=== PATIENT | male | born 1980 | race Caucasian/White ===

== ENCOUNTER 2020-12-29 16:00 | Observation (INO) | payer OTHER ==
[~2020-12-29] VITALS: Ht 167.6 cm; Wt 75.0 kg
[2020-12-29] MEDS ORDERED: IV NORMAL SALINE 1000ML BAG 1,000 ML IV ONE (16:30)
[2020-12-29] MEDS ORDERED: ONDANSETRON PF 4 MG/2 ML VIAL. IVP ONE (16:30)
[2020-12-29 16:44] LABS: BASO # 0.1 x10^3/uL (0.0-0.2); BASO % 1 % (0-3); EOS % 0 % (0-3); HEMATOCRIT 48.9 % (39.0-53.0); HEMOGLOBIN 16.7 g/dL (13.0-17.5); LYMPH # 2.2 x10^3/uL (1.0-4.8); LYMPH % 18 % (24-48); MEAN CORPUSCULAR HEMOGLOBIN 31 pg (25-35); MEAN CORPUSCULAR HGB CONC 34 g/dL (31-37); MEAN CORPUSCULAR VOLUME 90 fL (79-100); MONO # 0.6 x10^3/uL (0.0-1.1); MONO % 5 % (0-9); NEUT # 9.5 x10^3/uL (1.8-7.7); NEUT % 76 % (31-73); PLATELET COUNT 216 x10^3/uL (140-400); RED BLOOD COUNT 5.43 x10^6/uL (4.30-5.70); RED CELL DISTRIBUTION WIDTH 13.7 % (11.5-14.5); WHITE BLOOD COUNT 12.4 x10^3/uL (4.0-11.0)
--- NOTE | 2020-12-29 16:45 | PHYS DOC ---
General Adult EDM: Chief Complaint: TRAUMA ALERT HPI: HPI: Patient is a 40 year old male who presents with here from [facility] when he was playing basketball and fell back and hit his head hard against a cement floor. It is unknown if he lost consciousness at that time. Guards stated that he got back up and said that he was fine and then began to vomit. This happened approximately 3:00 this afternoon. Patient's history is seizures of which she takes Keppra. Patient states he has a headache that he rates an 8 out of 10. He states " I do not feel good". Patient is repeating himself. Patient will be speaking and then start snoring and then awakens again. Review of Systems: Review of Systems: Constitutional: Denies fever or chills. [] Eyes: Denies change in visual acuity. [] HENT: Denies nasal congestion or sore throat. [] Respiratory: Denies cough or shortness of breath. [] Cardiovascular: Denies chest pain or edema. [] GI: Denies abdominal pain, nausea, +vomiting, denies bloody stools or diarrhea. [] : Denies dysuria. [] Musculoskeletal: Denies back pain or joint pain. [] Integument: Denies rash. [] Neurologic: + headache, denies focal weakness or sensory changes. + Head injury [] Endocrine: Denies polyuria or polydipsia. [] Lymphatic: Denies swollen glands. [] Psychiatric: Denies depression or anxiety. [] Heart Score: C/O Chest Pain: No Risk Factors: Risk Factors: DM, Current or recent (<one month) smoker, HTN, HLP, family history of CAD, obesity. Risk Scores: Score 0 - 3: 2.5% MACE over next 6 weeks - Discharge Home Score 4 - 6: 20.3% MACE over next 6 weeks - Admit for Clinical Observation Score 7 - 10: 72.7% MACE over next 6 weeks - Early Invasive Strategies Current Medications: Current Medications Medications (Trade) Dose Ordered Sig/Ana Start Time Stop Time Status Last Admin Dose Admin Lorazepam (Ativan Inj) 2 mg 1X ONCE 12/29/20 16:30 12/29/20 16:31 UNV Ondansetron HCl (Zofran) 4 mg 1X ONCE 12/29/20 16:30 12/29/20 16:31 UNV Sodium Chloride 1,000 ml @ 1,000 mls/hr 1X ONCE 12/29/20 16:30 12/29/20 17:29 UNV Physical Exam: PE: Constitutional: Well developed, well nourished, no acute distress, non-toxic appearance. [] HENT: Normocephalic, atraumatic, bilateral external ears normal, oropharynx moist, no oral exudates, nose normal. [] Eyes: PERRLA, EOMI, conjunctiva normal, no discharge. [] Neck: Normal range of motion, right and left sides of neck tenderness, supple, no stridor. [] Cardiovascular:Heart rate regular rhythm, no murmur [] Lungs & Thorax: Bilateral breath sounds clear to auscultation [] Abdomen: Bowel sounds normal, soft, no tenderness, no masses, no pulsatile masses. [] Skin: Warm, dry, no erythema, no rash. Redness and tenderness to the back of the scalp. [] Back: Right and left sides of neck tenderness, no CVA tenderness. [] Extremities: No tenderness, no cyanosis, no clubbing, ROM intact, no edema. [] Neurologic: Alert and oriented X 3, normal motor function, normal sensory function, no focal deficits noted. [] Psychologic: Affect normal, judgement normal, mood normal. [] EKG: EK and read by Dr. Ortiz as sinus rhythm and no STEMI Radiology/Procedures: Radiology/Procedures: [] Impression: [facility] [address] [facility] [place], [place] [id number] IMAGING REPORT Signed PATIENT: SABINO REDMAN ACCOUNT: [id number] : 1980 LOCATION: ER AGE: 40 SEX: M EXAM STATUS: REG ER ORD. PHYSICIAN: GWENDOLYN FRANKEL APRN REASON: vomited during seizure PROCEDURE: PORTABLE CHEST 1V INDICATION: Reason: vomited during seizure / Spl. Instructions: / History: COMPARISON: None. FINDINGS: Single view of chest obtained. Hypoexpanded examination of the lung without focal airspace consolidation. Cardiac silhouette is unremarkable. IMPRESSION: * No focal airspace consolidation or edema. Electronically signed by: Irasema Gooden MD (12/29/2020 5:04 PM) [id number] DICTATED and SIGNED BY: IRASEMA GOODEN MD DATE: 12/29/20 [id number] [facility] [address] [place] [address] IMAGING REPORT Signed PATIENT: SABINO REDMAN ACCOUNT: [id number] : 1980 LOCATION: ER AGE: 40 SEX: M EXAM STATUS: REG ER ORD. PHYSICIAN: GWENDOLYN FRANKEL APRN REASON: hit back of head on cement PROCEDURE: CT HEAD AND CERVICAL SPINE WO INDICATION: Reason: hit back of head on cement / Spl. Instructions: / History: COMPARISON: None. TECHNIQUE: Axial CT images obtained through the head and cervical spine without intravenous contrast. Coronal and sagittal reformats processed of cervical spine. One or more of the following individualized dose reduction techniques were utilized for this examination: 1. Automated exposure control; 2. Adjustment of the mA and/or kV according to patient size; 3. Use of iterative reconstruction technique. FINDINGS: Head: No intracranial hemorrhage. No midline shift. Basal cisterns patents. Ventricles and sulci are within normal limits. No acute osseous abnormality. Orbits and paranasal sinuses unremarkable. Cervical: No definite acute fracture. No dislocation. No evidence of perivertebral hematoma. Degenerative changes the spine. There is some subcutaneous edema posteriorly. IMPRESSION: * No acute intracranial hemorrhage. * No acute fracture or dislocation of the cervical spine. Degenerative changes are identified including osteophyte formation at the vertebral body endplates as well as uncovertebral and facet hypertrophy. Mild scoliotic curvature of the cervical spine although this could be positional. * Angulation of proximal humerus on the medical assistant float view on the right. Would correlate with symptoms in the region and if the patient has any pain at this site dedicated shoulder radiographs could better assess. Electronically signed by: Irasema Gooden MD (12/29/2020 6:02 PM) [id number] DICTATED and SIGNED BY: IRASEMA GOODEN MD DATE: 12/29/20 [id number] Course & Med Decision Making: Course & Med Decision Making Pertinent Labs and Imaging studies reviewed. (See chart for details) See HPI. Patient is trying to follow commands but is disoriented. Patient began having a seizure was witnessed by nursing staff that lasted about 20 seconds and it was full body. Patient was given 2 mg Ativan and seizure stopped. Patient did begin to vomit in the ED. Patient was promptly set up. Patient tries to follow my fingers with his eyes only. He does so briefly. There is some nystagmus. Patient states that he is not dizzy but just does not feel well. He states his head is hurting badly. He does have a red deb to the back of his scalp and slight tenderness with palpation. He does have right and left sides of cervical spine tenderness. He is moving his neck in all of his limbs appropriately. CT head and neck without any acute findings. Chest x-ray shows no acute findings. Patient has not had another seizure since he has been in the ED. He is given Tylenol for his headache. Patient is admitted to Dr. Mandujano. [] Fartun Disclaimer: Fartun Disclaimer: This electronic medical record was generated, in whole or in part, using a voice recognition dictation system. Departure Departure Impression: Primary Impression: Head injury Qualified Codes: S09.90XA - Unspecified injury of head, initial encounter Additional Impression: Seizure Disposition: ADMITTED INPATIENT Admitting Physician: PARISH Condition: STABLE GWENDOLYN FRANKEL HELP DESK ADMINISTRATOR Dec 29, 2020 16:45
[2020-12-29 16:52] LABS: CALCIUM 9.4 mg/dL (8.5-10.1); CREATININE 1.1 mg/dL (0.7-1.3); GFR 74.5
[2020-12-29 16:57] LABS: ALBUMIN 4.6 g/dL (3.4-5.0); ALBUMIN/GLOBULIN RATIO 1.4 (1.0-1.7); TOTAL BILIRUBIN 0.6 mg/dL (0.2-1.0)
--- NOTE | 2020-12-29 17:06 | RAD ---
INDICATION: Reason: vomited during seizure / Spl. Instructions: / History: COMPARISON: None. FINDINGS: Single view of chest obtained. Hypoexpanded examination of the lung without focal airspace consolidation. Cardiac silhouette is unremarkable. IMPRESSION: * No focal airspace consolidation or edema. Electronically signed by: Valentin Mathew MD (12/29/2020 5:04 PM) [id number]
--- NOTE | 2020-12-29 17:18 | EKG ---
[facility] [address] [place] [address] Test Date: 2020-12-29 Test Time: 16:19:58 Pat Name: SABINO REDMAN Department: Room: Gender: M Community Aide: : 1980 Requested By: GWENDOLYN FRANKEL Order Number: [id number] Reading MD: Measurements Intervals Zoe Rate: 72 P: 20 OR: 162 QRS: 0 QRSD: 72 T: 31 QT: 356 QTc: 391 Interpretive Statements SINUS RHYTHM LEFTWARD AXIS OTHERWISE NORMAL ECG RI6.02 No previous ECG available for comparison
--- NOTE | 2020-12-29 18:05 | RAD ---
INDICATION: Reason: hit back of head on cement / Spl. Instructions: / History: COMPARISON: None. TECHNIQUE: Axial CT images obtained through the head and cervical spine without intravenous contrast. Coronal a nd sagittal reformats processed of cervical spine. One or more of the following individualized dose reduction techniques were utilized for this examinat ion: 1. Automated exposure control; 2. Adjustment of the mA and/or kV according to patient size; 3 . Use of iterative reconstruction technique. FINDINGS: Head: No intracranial hemorrhage. No midline shift. Basal cisterns patents. Ventricles and sulci are within normal limits. No acute osseous abnormality. Orbits and paranasal sinuses unremarkable. Cervical: No definite acute fracture. No dislocation. No evidence of perivertebral hematoma. Degenerative changes the spine. There is some subcutaneous edema posteriorly. IMPRESSION: * No acute intracranial hemorrhage. * No acute fracture or dislocation of the cervical spine. Degenerative changes are identified includ ing osteophyte formation at the vertebral body endplates as well as uncovertebral and facet hypertrop hy. Mild scoliotic curvature of the cervical spine although this could be positional. * Angulation of proximal humerus on the retail service technician view on the right. Would correlate with symptoms in th e region and if the patient has any pain at this site dedicated shoulder radiographs could better ass ess. Electronically signed by: Valentin Mathew MD (12/29/2020 6:02 PM) [id number]
[2020-12-29] MEDS ORDERED: ACETAMINOPHEN 500 MG TABLET PO ONE (18:15)
[2020-12-29] MEDS ORDERED: ACETAMINOPHEN 325 MG TABLET. PO PRN ×2 (18:30→18:45)
[2020-12-29 18:34] LABS: PROTHROMBIN TIME PATIENT 13.1 SEC (11.7-14.0)
[2020-12-29] MEDS ORDERED: ZOLPIDEM 5 MG TABLET. PO PRN (18:45)
[2020-12-29] MEDS ORDERED: HYDROcodone/APAP 5/325MG 1 TAB TABLET PO PRN (18:45)
[2020-12-29] MEDS ORDERED: CALCIUM CARBONATE 500 MG TAB.CHEW PO PRN (18:45)
[2020-12-29] MEDS ORDERED: MAGNESIUM HYDROXIDE 2,400 MG/30 ML ORAL.SUSP. PO PRN (18:45)
[2020-12-29] MEDS ORDERED: IBUPROFEN 400 MG TABLET. PO PRN (18:45)
[2020-12-29] MEDS ORDERED: MORPHINE SULFATE 4 MG/ML INJ. IV PRN (18:45)
[2020-12-29] MEDS ORDERED: MAG HYDROX/ALUMINUM HYD/SIMETH 30 ML ORAL.SUSP PO PRN (18:45)
[2020-12-29] MEDS ORDERED: LEVE750T41 PO (20:27)
[2020-12-29] MEDS ORDERED: levETIRAcetam 250 MG TABLET PO SCH (21:00)
[2020-12-29 21:11] VITALS: BP 107/71
[2020-12-29] MEDS: HYDROcodone/APAP 5/325MG 1 TAB TABLET PO PRN (22:02)
[2020-12-29 23:00] VITALS: BP 115/70
[2020-12-30] MEDS: HYDROcodone/APAP 5/325MG 1 TAB TABLET PO PRN ×2 (02:43→16:20)
[2020-12-30 03:01] VITALS: BP 95/61
--- NOTE | 2020-12-30 06:33 | NUR ---
NURSING NOTE Pt guards noted that pt was moaning, and tensing up and twitching, making wretching noises. Upon entering room, pt is drowsy, states he doesn't know where he is. Pt will speak a few words, then fall back asleep. Pt reports head hurting, but also some nausea. Pt given zofran. Pt wakes up with a startle, says he thinks he had a seizure, then falls back asleep. Will monitor and pass on in report.
[2020-12-30] MEDS: ONDANSETRON PF 4 MG/2 ML VIAL. IVP PRN ×2 (06:51→16:23)
[2020-12-30 07:47] VITALS: BP 105/67
--- NOTE | 2020-12-30 08:08 | PDOC1 ---
History and Physical Date of Service: DOS: DATE: 12/30/20 TIME: 08:05 Chief Complaint: Chief Complain: Seizures History of Present Illness: HPI: 40 year old male inmate who presents with here from [facility] when he was playing basketball and fell back and hit his head hard against a cement floor. It is unknown if he lost consciousness at that time. Guards stated that he got back up and said that he was fine and then began to vomit. This happened approximately 3:00 this afternoon. Patient's history is seizures of which she takes Keppra. Patient states he has a headache that he rates an 8 out of 10. He states " I do not feel good". Patient is repeating himself. Patient will be speaking and then start snoring and then awakens again. Chart review: ED course - Patient is trying to follow commands but is disoriented. Patient began having a seizure was witnessed by nursing staff that lasted about 20 seconds and it was full body. Patient was given 2 mg Ativan and seizure stopped. Patient did begin to vomit in the ED. Patient was promptly set up. Patient tries to follow my fingers with his eyes only. He does so briefly. There is some nystagmus. Patient states that he is not dizzy but just does not feel well. He states his head is hurting badly. He does have a red deb to the back of his scalp and slight tenderness with palpation. He does have right and left sides of cervical spine tenderness. He is moving his neck in all of his limbs appropriately. CT head and neck without any acute findings. Chest x-ray shows no acute findings. Patient has not had another seizure since he has been in the ED. He is given Tylenol for his headache. Past Medical/Surgical History: PMH/PSH: History of seizures Allergies: Allergies: Coded Allergies: No Known Drug Allergies (Unverified , 12/29/20) Family History: Family History: Reviewed with no relevant findings Social History: Social History: Denies alcohol, drug or tobacco abuse Current Medications: Current Medications Current Medications Lorazepam (Ativan Inj) 2 mg 1X ONCE IVP Last administered on 12/29/20at 16:28; Start 12/29/20 at 16:30; Stop 12/29/20 at 16:56; Status DC Ondansetron HCl (Zofran) 4 mg 1X ONCE IVP Last administered on 12/29/20at 16:57; Start 12/29/20 at 16:30; Stop 12/29/20 at 16:56; Status DC Sodium Chloride 1,000 ml @ 1,000 mls/hr 1X ONCE IV Last administered on 12/29/20at 16:57; Start 12/29/20 at 16:30; Stop 12/29/20 at 17:29; Status DC Acetaminophen (Tylenol) 1,000 mg 1X ONCE PO Last administered on 12/29/20at 19:24; Start 12/29/20 at 18:15; Stop 12/29/20 at 18:16; Status DC Lorazepam (Ativan Inj) 2 mg PRN Q10MIN PRN IVP TREMORS; Start 12/29/20 at 18:30 Acetaminophen (Tylenol) 650 mg PRN Q4HRS PRN PO FEVER > 100.3'F; Start 12/29/20 at 18:30; Stop 12/29/20 at 18:50; Status DC Morphine Sulfate (Morphine Sulfate) 4 mg PRN Q4HRS PRN IV SEVERE PAIN 7-10; Start 12/29/20 at 18:45 Ondansetron HCl (Zofran) 4 mg PRN Q6HRS PRN IVP NAUSEA/VOMITING Last administered on 12/30/20at 06:51; Start 12/29/20 at 18:45 Al Hydroxide/Mg Hydroxide (Mylanta Plus Xs) 30 ml PRN Q3HRS PRN PO HEARTBURN / GAS; Start 12/29/20 at 18:45 Calcium Carbonate/ Glycine (Tums) 500 mg PRN Q3HRS PRN PO UPSET STOMACH; Start 12/29/20 at 18:45 Zolpidem Tartrate (Ambien) 5 mg PRN QHS PRN PO INSOMNIA, MAY REPEAT IN 1HR; Start 12/29/20 at 18:45 Acetaminophen/ Hydrocodone Bitart (Lortab 5/325) 1 tab PRN Q4HRS PRN PO MODERATE PAIN Last administered on 12/30/20at 02:43; Start 12/29/20 at 18:45 Acetaminophen/ Hydrocodone Bitart (Lortab 5/325) 2 tab PRN Q4HRS PRN PO SEVERE PAIN; Start 12/29/20 at 18:45 Acetaminophen (Tylenol) 650 mg PRN Q6HRS PRN PO Headaches, Temp > 101.5F; Start 12/29/20 at 18:45 Ibuprofen (Motrin) 400 mg PRN Q6HRS PRN PO MILD PAIN 1-3; Start 12/29/20 at 18:45 Magnesium Hydroxide (Milk Of Magnesia) 2,400 mg PRN Q12HR PRN PO CONSTIPATION; Start 12/29/20 at 18:45 Levetiracetam (Keppra) 750 mg BID PO Last administered on 12/29/20at 22:01; Start 12/29/20 at 21:00 Active Scripts Active Reported Keppra (Levetiracetam) 750 Mg Tablet 750 Mg PO BID ROS: Review of Systems Review of System REVIEW OF SYSTEMS: GENERAL: Denies weakness SKIN: No bruising, hair changes or rashes. EYES: No blurred, double or loss of vision. NOSE AND THROAT: No history of nosebleeds, hoarseness or sore throat. HEART: No history of palpitations, chest pain or shortness of breath on exertion. LUNGS: Denies cough, hemoptysis, wheezing or shortness of breath. GASTROINTESTINAL: Denies changes in appetite, nausea, vomiting, diarrhea or constipation. GENITOURINARY: No history of frequency, urgency, hesitancy or nocturia. NEUROLOGIC: Denies history of numbness, tingling, or tremor. PSYCHIATRIC: No history of panic, anxiety or depression. ENDOCRINE: No history of heat or cold intolerance, polyuria or polydipsia. EXTREMITIES: Denies joint pain, pain on walking or stiffness. Physical Exam: Vital Signs: Vital Signs Date Time Temp Pulse Resp B/P (MAP) Pulse Ox O2 Delivery O2 Flow Rate FiO2 12/30/20 07:47 98.5 66 18 105/67 (80) 97 Room Air 98.5 Physcial Exam: GEN: No apparent distress. Alert and oriented HEENT: Normal cephalic, atraumatic, external auditory canals are patent EYES: Extraocular muscles are intact, pupil are equally round and reactive to light and accommodation MUSCULOSKELETAL: Well developed , well nourished, good range of motion ENDOCRINE: No thyromegaly was palpated LYMPHATICS: No cervical chain or axillary nodes were noted HEMATOPOIETIC: No bruising NECK: Supple, no JVD, no thyromegaly was noted LUNGS: Clear to auscultation in all lung hawley without rhonchi or wheezing HEART: RRR, S!, S2 present. Peripheral pulses intact, no obvious murmurs noted ABDOMEN: Soft, nontender. Positive bowel sounds, no organomegaly, normal bowel sounds EXTREMITIES: Without clubbing, cyanosis, or edema. Pedal pulses intact. Negative Homans sign NEUROLOGIC: Normal speech and tone. A&O x 3, moves all extremities, no obvious focal deficits PSYCHIATRIC: Normal affect, normal mood. Stable SKIN: No ulcerations or rashes, good skin turgor, no jaundice VASCULAR: Good capillary refill, neurovascular bundle appears to be intact Labs: Labs: Laboratory Tests Test 12/29/20 16:25 12/29/20 18:10 White Blood Count 12.4 x10^3/uL (4.0-11.0) Red Blood Count 5.43 x10^6/uL (4.30-5.70) Hemoglobin 16.7 g/dL (13.0-17.5) Hematocrit 48.9 % (39.0-53.0) Mean Corpuscular Volume 90 fL (79-100) Mean Corpuscular Hemoglobin 31 pg (25-35) Mean Corpuscular Hemoglobin Concent 34 g/dL (31-37) Red Cell Distribution Width 13.7 % (11.5-14.5) Platelet Count 216 x10^3/uL (140-400) Neutrophils (%) (Auto) 76 % (31-73) Lymphocytes (%) (Auto) 18 % (24-48) Monocytes (%) (Auto) 5 % (0-9) Eosinophils (%) (Auto) 0 % (0-3) Basophils (%) (Auto) 1 % (0-3) Neutrophils # (Auto) 9.5 x10^3/uL (1.8-7.7) Lymphocytes # (Auto) 2.2 x10^3/uL (1.0-4.8) Monocytes # (Auto) 0.6 x10^3/uL (0.0-1.1) Eosinophils # (Auto) 0.0 x10^3/uL (0.0-0.7) Basophils # (Auto) 0.1 x10^3/uL (0.0-0.2) Sodium Level 140 mmol/L (136-145) Potassium Level 5.0 mmol/L (3.5-5.1) Chloride Level 103 mmol/L (98-107) Carbon Dioxide Level 27 mmol/L (21-32) Anion Gap 10 (6-14) Blood Urea Nitrogen 16 mg/dL (8-26) Creatinine 1.1 mg/dL (0.7-1.3) Estimated GFR (Cockcroft-Gault) 74.5 BUN/Creatinine Ratio 15 (6-20) Glucose Level 79 mg/dL (70-99) Calcium Level 9.4 mg/dL (8.5-10.1) Total Bilirubin 0.6 mg/dL (0.2-1.0) Aspartate Amino Transf (AST/SGOT) 21 U/L (15-37) Alanine Aminotransferase (ALT/SGPT) 24 U/L (16-63) Alkaline Phosphatase 94 U/L (46-116) Creatine Kinase 175 U/L (39-308) Total Protein 8.0 g/dL (6.4-8.2) Albumin 4.6 g/dL (3.4-5.0) Albumin/Globulin Ratio 1.4 (1.0-1.7) Prothrombin Time 13.1 SEC (11.7-14.0) Prothromb Time International Ratio 1.0 (0.8-1.1) Activated Partial Thromboplast Time 21 SEC (24-38) Laboratory Tests Test 12/29/20 16:25 12/29/20 18:10 White Blood Count 12.4 x10^3/uL (4.0-11.0) Red Blood Count 5.43 x10^6/uL (4.30-5.70) Hemoglobin 16.7 g/dL (13.0-17.5) Hematocrit 48.9 % (39.0-53.0) Mean Corpuscular Volume 90 fL (79-100) Mean Corpuscular Hemoglobin 31 pg (25-35) Mean Corpuscular Hemoglobin Concent 34 g/dL (31-37) Red Cell Distribution Width 13.7 % (11.5-14.5) Platelet Count 216 x10^3/uL (140-400) Neutrophils (%) (Auto) 76 % (31-73) Lymphocytes (%) (Auto) 18 % (24-48) Monocytes (%) (Auto) 5 % (0-9) Eosinophils (%) (Auto) 0 % (0-3) Basophils (%) (Auto) 1 % (0-3) Neutrophils # (Auto) 9.5 x10^3/uL (1.8-7.7) Lymphocytes # (Auto) 2.2 x10^3/uL (1.0-4.8) Monocytes # (Auto) 0.6 x10^3/uL (0.0-1.1) Eosinophils # (Auto) 0.0 x10^3/uL (0.0-0.7) Basophils # (Auto) 0.1 x10^3/uL (0.0-0.2) Sodium Level 140 mmol/L (136-145) Potassium Level 5.0 mmol/L (3.5-5.1) Chloride Level 103 mmol/L (98-107) Carbon Dioxide Level 27 mmol/L (21-32) Anion Gap 10 (6-14) Blood Urea Nitrogen 16 mg/dL (8-26) Creatinine 1.1 mg/dL (0.7-1.3) Estimated GFR (Cockcroft-Gault) 74.5 BUN/Creatinine Ratio 15 (6-20) Glucose Level 79 mg/dL (70-99) Calcium Level 9.4 mg/dL (8.5-10.1) Total Bilirubin 0.6 mg/dL (0.2-1.0) Aspartate Amino Transf (AST/SGOT) 21 U/L (15-37) Alanine Aminotransferase (ALT/SGPT) 24 U/L (16-63) Alkaline Phosphatase 94 U/L (46-116) Creatine Kinase 175 U/L (39-308) Total Protein 8.0 g/dL (6.4-8.2) Albumin 4.6 g/dL (3.4-5.0) Albumin/Globulin Ratio 1.4 (1.0-1.7) Prothrombin Time 13.1 SEC (11.7-14.0) Prothromb Time International Ratio 1.0 (0.8-1.1) Activated Partial Thromboplast Time 21 SEC (24-38) Images: Images CXR Impression: 1. No acute cardiopulmonary process. PROCEDURE: CT HEAD AND CERVICAL SPINE WO IMPRESSION: * No acute intracranial hemorrhage. * No acute fracture or dislocation of the cervical spine. Degenerative changes are identified including osteophyte formation at the vertebral body endplates as well as uncovertebral and facet hypertrophy. Mild scoliotic curvature of the cervical spine although this could be positional. * Angulation of proximal humerus on the business proposal rep view on the right. Would correlate with symptoms in the region and if the patient has any pain at this site dedicated shoulder radiographs could better assess. Assessment/Plan Assessment/Plan Acute onset seizure History of epilepsy Admit to medicine for further management Neurology consult Pending MRI of the brain Increase Keppra to 1000 mg twice daily Seizure precautions Ambulation for DVT prophylaxis ADA diet Full code Discussed with RN and SW Disposition inpatient management above Surrogate decision maker is undesignated Justifications for Admission Other Justification KEVIN BARBA MD Dec 30, 2020 08:08
[2020-12-30] MEDS: levETIRAcetam 500 MG TABLET PO SCH ×2 (09:57→21:40)
--- NOTE | 2020-12-30 10:03 | PDOC2 ---
NEUROLOGY CONSULT Date of Service DOS: DATE: 12/30/20 TIME: 09:57 Reason for Consult Reason for Consult: Epilepsy, head injury Referring Physician Referring Physician: Dr. Mandujano Source Source: Chart review, Patient History of Present Illness History of Present Illness Patient is a 40-year-old right-handed male inmate who was playing basketball and fell and hit the back of his head. He believes that he then had a seizure. He did have a witnessed 20-second seizure in the emergency department, he was given Ativan. Patient has had seizures since 2004, he says that he started with a heat stroke. He says that he has never seen a neurologist. His last seizure was about a week ago. He is on levetiracetam 750 mg twice a day. He does not think he has been on higher doses. Today he complains of headache and dizziness. He also complains of occasional chronic tics. Past Medical History CENTRAL NERVOUS SYSTEM: Seizure Psych: Anxiety, Depression Past Surgical History Past Surgical History: No pertinent history Family History Family History: No pertinent hx Social History Social History Prisoner Current Medications Current Medications Current Medications Lorazepam (Ativan Inj) 2 mg 1X ONCE IVP Last administered on 12/29/20at 16:28; Start 12/29/20 at 16:30; Stop 12/29/20 at 16:56; Status DC Ondansetron HCl (Zofran) 4 mg 1X ONCE IVP Last administered on 12/29/20at 16:57; Start 12/29/20 at 16:30; Stop 12/29/20 at 16:56; Status DC Sodium Chloride 1,000 ml @ 1,000 mls/hr 1X ONCE IV Last administered on 12/04 01/22at 16:57; Start 12/29/20 at 16:30; Stop 12/29/20 at 17:29; Status DC Acetaminophen (Tylenol) 1,000 mg 1X ONCE PO Last administered on 12/29/20at 19:24; Start 12/29/20 at 18:15; Stop 12/29/20 at 18:16; Status DC Lorazepam (Ativan Inj) 2 mg PRN Q10MIN PRN IVP TREMORS; Start 12/29/20 at 18:30 Acetaminophen (Tylenol) 650 mg PRN Q4HRS PRN PO FEVER > 100.3'F; Start 12/29/20 at 18:30; Stop 12/29/20 at 18:50; Status DC Morphine Sulfate (Morphine Sulfate) 4 mg PRN Q4HRS PRN IV SEVERE PAIN 7-10; Start 12/29/20 at 18:45 Ondansetron HCl (Zofran) 4 mg PRN Q6HRS PRN IVP NAUSEA/VOMITING Last administered on 12/30/20at 06:51; Start 12/29/20 at 18:45 Al Hydroxide/Mg Hydroxide (Mylanta Plus Xs) 30 ml PRN Q3HRS PRN PO HEARTBURN / GAS; Start 12/29/20 at 18:45 Calcium Carbonate/ Glycine (Tums) 500 mg PRN Q3HRS PRN PO UPSET STOMACH; Start 12/29/20 at 18:45 Zolpidem Tartrate (Ambien) 5 mg PRN QHS PRN PO INSOMNIA, MAY REPEAT IN 1HR; Start 12/29/20 at 18:45 Acetaminophen/ Hydrocodone Bitart (Lortab 5/325) 1 tab PRN Q4HRS PRN PO MODERATE PAIN Last administered on 12/30/20at 02:43; Start 12/29/20 at 18:45 Acetaminophen/ Hydrocodone Bitart (Lortab 5/325) 2 tab PRN Q4HRS PRN PO SEVERE PAIN; Start 12/29/20 at 18:45 Acetaminophen (Tylenol) 650 mg PRN Q6HRS PRN PO Headaches, Temp > 101.5F; Start 12/29/20 at 18:45 Ibuprofen (Motrin) 400 mg PRN Q6HRS PRN PO MILD PAIN 1-3; Start 12/29/20 at 18:45 Magnesium Hydroxide (Milk Of Magnesia) 2,400 mg PRN Q12HR PRN PO CONSTIPATION; Start 12/29/20 at 18:45 Levetiracetam (Keppra) 750 mg BID PO Last administered on 12/29/20at 22:01; Start 12/29/20 at 21:00; Stop 12/30/20 at 08:45; Status DC Levetiracetam (Keppra) 1,000 mg BID PO ; Start 12/30/20 at 09:00 Active Scripts Active Reported Keppra (Levetiracetam) 750 Mg Tablet 750 Mg PO BID Allergies Allergies: Coded Allergies: No Known Drug Allergies (Unverified , 12/29/20) ROS Review of System Negative for fever, chills, weight loss, shortness of breath, chest pain, indigestion, hematochezia, melena, and dysuria. Full 14-point review of systems is negative. Physical Exam Physical Examination General: Well-developed, well-nourished white male in no mild distress HEENT: Normocephalic andatraumatic. Temporal arteriespulsatile and nontender. Neck: Supple without bruit, no meningismus Musculoskeletal: Stability:see neurologic. Gait exam:see neurologic. Tone:see neurologic.Strength:see neurologic. Neurological: Mental Status:intact, orientation, memory, attention span/concentration, language, fund of knowledge normal. Cranial Nerves:Pupils equal and reactive to light, extraocular movements areintact, visual hawley are full to confrontation. Facial sensation is normal. There is no facial asymmetry. Vestibulo-ocular reflex is intact. Palate elevates and tongue protrudes in mid line. All other cranial related problems are negative except as mentioned before.Reflexes:2+ and symmetric with flexor plantar responses. Motor:5/5 strength with normal tone and bulk. Coordination:Finger-nose finger and [id number] testing are normal. Rapid alternating movements and fine finger movements are intact. Gait:not tested. Sensory:Normal pinprick, vibration, light touch, proprioception. Vitals VITALS Vital Signs Date Time Temp Pulse Resp B/P (MAP) Pulse Ox O2 Delivery O2 Flow Rate FiO2 12/30/20 08:00 Room Air 12/30/20 07:47 98.5 66 18 105/67 (80) 97 98.5 Labs Labs Laboratory Tests Test 12/29/20 16:25 12/29/20 18:10 White Blood Count 12.4 x10^3/uL (4.0-11.0) Red Blood Count 5.43 x10^6/uL (4.30-5.70) Hemoglobin 16.7 g/dL (13.0-17.5) Hematocrit 48.9 % (39.0-53.0) Mean Corpuscular Volume 90 fL (79-100) Mean Corpuscular Hemoglobin 31 pg (25-35) Mean Corpuscular Hemoglobin Concent 34 g/dL (31-37) Red Cell Distribution Width 13.7 % (11.5-14.5) Platelet Count 216 x10^3/uL (140-400) Neutrophils (%) (Auto) 76 % (31-73) Lymphocytes (%) (Auto) 18 % (24-48) Monocytes (%) (Auto) 5 % (0-9) Eosinophils (%) (Auto) 0 % (0-3) Basophils (%) (Auto) 1 % (0-3) Neutrophils # (Auto) 9.5 x10^3/uL (1.8-7.7) Lymphocytes # (Auto) 2.2 x10^3/uL (1.0-4.8) Monocytes # (Auto) 0.6 x10^3/uL (0.0-1.1) Eosinophils # (Auto) 0.0 x10^3/uL (0.0-0.7) Basophils # (Auto) 0.1 x10^3/uL (0.0-0.2) Sodium Level 140 mmol/L (136-145) Potassium Level 5.0 mmol/L (3.5-5.1) Chloride Level 103 mmol/L (98-107) Carbon Dioxide Level 27 mmol/L (21-32) Anion Gap 10 (6-14) Blood Urea Nitrogen 16 mg/dL (8-26) Creatinine 1.1 mg/dL (0.7-1.3) Estimated GFR (Cockcroft-Gault) 74.5 BUN/Creatinine Ratio 15 (6-20) Glucose Level 79 mg/dL (70-99) Calcium Level 9.4 mg/dL (8.5-10.1) Total Bilirubin 0.6 mg/dL (0.2-1.0) Aspartate Amino Transf (AST/SGOT) 21 U/L (15-37) Alanine Aminotransferase (ALT/SGPT) 24 U/L (16-63) Alkaline Phosphatase 94 U/L (46-116) Creatine Kinase 175 U/L (39-308) Total Protein 8.0 g/dL (6.4-8.2) Albumin 4.6 g/dL (3.4-5.0) Albumin/Globulin Ratio 1.4 (1.0-1.7) Prothrombin Time 13.1 SEC (11.7-14.0) Prothromb Time International Ratio 1.0 (0.8-1.1) Activated Partial Thromboplast Time 21 SEC (24-38) Laboratory Tests Test 12/29/20 16:25 12/29/20 18:10 White Blood Count 12.4 x10^3/uL (4.0-11.0) Red Blood Count 5.43 x10^6/uL (4.30-5.70) Hemoglobin 16.7 g/dL (13.0-17.5) Hematocrit 48.9 % (39.0-53.0) Mean Corpuscular Volume 90 fL (79-100) Mean Corpuscular Hemoglobin 31 pg (25-35) Mean Corpuscular Hemoglobin Concent 34 g/dL (31-37) Red Cell Distribution Width 13.7 % (11.5-14.5) Platelet Count 216 x10^3/uL (140-400) Neutrophils (%) (Auto) 76 % (31-73) Lymphocytes (%) (Auto) 18 % (24-48) Monocytes (%) (Auto) 5 % (0-9) Eosinophils (%) (Auto) 0 % (0-3) Basophils (%) (Auto) 1 % (0-3) Neutrophils # (Auto) 9.5 x10^3/uL (1.8-7.7) Lymphocytes # (Auto) 2.2 x10^3/uL (1.0-4.8) Monocytes # (Auto) 0.6 x10^3/uL (0.0-1.1) Eosinophils # (Auto) 0.0 x10^3/uL (0.0-0.7) Basophils # (Auto) 0.1 x10^3/uL (0.0-0.2) Sodium Level 140 mmol/L (136-145) Potassium Level 5.0 mmol/L (3.5-5.1) Chloride Level 103 mmol/L (98-107) Carbon Dioxide Level 27 mmol/L (21-32) Anion Gap 10 (6-14) Blood Urea Nitrogen 16 mg/dL (8-26) Creatinine 1.1 mg/dL (0.7-1.3) Estimated GFR (Cockcroft-Gault) 74.5 BUN/Creatinine Ratio 15 (6-20) Glucose Level 79 mg/dL (70-99) Calcium Level 9.4 mg/dL (8.5-10.1) Total Bilirubin 0.6 mg/dL (0.2-1.0) Aspartate Amino Transf (AST/SGOT) 21 U/L (15-37) Alanine Aminotransferase (ALT/SGPT) 24 U/L (16-63) Alkaline Phosphatase 94 U/L (46-116) Creatine Kinase 175 U/L (39-308) Total Protein 8.0 g/dL (6.4-8.2) Albumin 4.6 g/dL (3.4-5.0) Albumin/Globulin Ratio 1.4 (1.0-1.7) Prothrombin Time 13.1 SEC (11.7-14.0) Prothromb Time International Ratio 1.0 (0.8-1.1) Activated Partial Thromboplast Time 21 SEC (24-38) Images Images CT HEAD AND CERVICAL SPINE WO INDICATION: Reason: hit back of head on cement / Spl. Instructions: / History: COMPARISON: None. TECHNIQUE: Axial CT images obtained through the head and cervical spine without intravenous contrast. Coronal and sagittal reformats processed of cervical spine. One or more of the following individualized dose reduction techniques were utilized for this examination: 1. Automated exposure control; 2. Adjustment of the mA and/or kV according to patient size; 3. Use of iterative reconstruction technique. FINDINGS: Head: No intracranial hemorrhage. No midline shift. Basal cisterns patents. Ventricles and sulci are within normal limits. No acute osseous abnormality. Orbits and paranasal sinuses unremarkable. Cervical: No definite acute fracture. No dislocation. No evidence of perivertebral hematoma. Degenerative changes the spine. There is some subcutaneous edema posteriorly. IMPRESSION: * No acute intracranial hemorrhage. * No acute fracture or dislocation of the cervical spine. Degenerative changes are identified including osteophyte formation at the vertebral body endplates as well as uncovertebral and facet hypertrophy. Mild scoliotic curvature of the cervical spine although this could be positional. * Angulation of proximal humerus on the rural route mail carrier view on the right. Would correlate with symptoms in the region and if the patient has any pain at this site dedicated shoulder radiographs could better assess. Assessment/Plan Assessment/Plan Impression: Epilepsy Concussion I did not see any tics Recommendations: MRI brain Increase levetiracetam dose to 1000 mg twice a day EEG will not help with management Observe 1 more night given continued concussion symptoms Thank you for letting me help with the patient's care. DHIRAJ LYMAN MD Dec 30, 2020 10:03
[2020-12-30 11:34] VITALS: BP 110/76
[2020-12-30 11:43] LABS: CALCIUM 8.2 mg/dL (8.5-10.1); GFR 83.2; MAGNESIUM 1.8 mg/dL (1.8-2.4); POTASSIUM 3.9 mmol/L (3.5-5.1)
--- NOTE | 2020-12-30 13:02 | PDOC2 ---
LEIDY IBANEZ GEOGRAPHIC INFORMATION SCIENTIST 12/30/20 1301: CONSULT Date of Consult Date of Consult DATE: 12/30/20 TIME: 12:53 Reason for Consult Reason for Consult: trauma Referring Physician Referring Physician: ER Identification/Chief Complaint Chief Complaint fall, seizure Source Source: Chart review, Patient History of Present Illness Reason for Visit: Fall and struck back of head on ground, hx of seizures and reports possible seizure during injury. Noted seizure in ER neurology is following he is having nausea, no further vomiting, some lightheaded Past Medical History CENTRAL NERVOUS SYSTEM: Seizure Psych: Anxiety, Depression Past Surgical History Past Surgical History: No pertinent history Family History Family History: Family History Unknown Social History No ALCOHOL: none Drugs: None Current Problem List Problem List Problems Medical Problems: (1) Head injury Status: Acute (2) Seizure Status: Acute Current Medications Current Medications Current Medications Lorazepam (Ativan Inj) 2 mg 1X ONCE IVP Last administered on 12/29/20at 16:28; Start 12/29/20 at 16:30; Stop 12/29/20 at 16:56; Status DC Ondansetron HCl (Zofran) 4 mg 1X ONCE IVP Last administered on 12/29/20at 16:5 7; Start 12/29/20 at 16:30; Stop 12/29/20 at 16:56; Status DC Sodium Chloride 1,000 ml @ 1,000 mls/hr 1X ONCE IV Last administered on 12/29/20at 16:57; Start 12/29/20 at 16:30; Stop 12/29/20 at 17:29; Status DC Acetaminophen (Tylenol) 1,000 mg 1X ONCE PO Last administered on 12/29/20at 19:24; Start 12/29/20 at 18:15; Stop 12/29/20 at 18:16; Status DC Lorazepam (Ativan Inj) 2 mg PRN Q10MIN PRN IVP TREMORS; Start 12/29/20 at 18:30 Acetaminophen (Tylenol) 650 mg PRN Q4HRS PRN PO FEVER > 100.3'F; Start 12/29/20 at 18:30; Stop 12/29/20 at 18:50; Status DC Morphine Sulfate (Morphine Sulfate) 4 mg PRN Q4HRS PRN IV SEVERE PAIN 7-10; Start 12/29/20 at 18:45 Ondansetron HCl (Zofran) 4 mg PRN Q6HRS PRN IVP NAUSEA/VOMITING Last administered on 12/30/20at 06:51; Start 12/29/20 at 18:45 Al Hydroxide/Mg Hydroxide (Mylanta Plus Xs) 30 ml PRN Q3HRS PRN PO HEARTBURN / GAS; Start 12/29/20 at 18:45 Calcium Carbonate/ Glycine (Tums) 500 mg PRN Q3HRS PRN PO UPSET STOMACH; Start 12/29/20 at 18:45 Zolpidem Tartrate (Ambien) 5 mg PRN QHS PRN PO INSOMNIA, MAY REPEAT IN 1HR; Start 12/29/20 at 18:45 Acetaminophen/ Hydrocodone Bitart (Lortab 5/325) 1 tab PRN Q4HRS PRN PO MODERATE PAIN Last administered on 12/30/20at 02:43; Start 12/29/20 at 18:45 Acetaminophen/ Hydrocodone Bitart (Lortab 5/325) 2 tab PRN Q4HRS PRN PO SEVERE PAIN; Start 12/29/20 at 18:45 Acetaminophen (Tylenol) 650 mg PRN Q6HRS PRN PO Headaches, Temp > 101.5F; Start 12/29/20 at 18:45 Ibuprofen (Motrin) 400 mg PRN Q6HRS PRN PO MILD PAIN 1-3; Start 12/29/20 at 18:45 Magnesium Hydroxide (Milk Of Magnesia) 2,400 mg PRN Q12HR PRN PO CONSTIPATION; Start 12/29/20 at 18:45 Levetiracetam (Keppra) 750 mg BID PO Last administered on 12/29/20at 22:01; Start 12/29/20 at 21:00; Stop 12/30/20 at 08:45; Status DC Levetiracetam (Keppra) 1,000 mg BID PO Last administered on 12/30/20at 09:57; Start 12/30/20 at 09:00 Active Scripts Active Reported Keppra (Levetiracetam) 750 Mg Tablet 750 Mg PO BID Allergies Allergies: Coded Allergies: No Known Drug Allergies (Unverified , 12/29/20) ROS General: YES: Fatigue; No: Chills PSYCHOLOGICAL ROS: No: Anxiety, Depression Eyes: No Blurry vision, No Double vision HEENT: YES: Heacaches; No: Sore Throat Hematological and Lymphatic: No: Bleeding Problems, Blood Clots Respiratory: No: Shortness of breath Cardiovascular: No Chest Pain, No Palpitations Gastrointestinal: Yes Other (see HPI) Genitourinary: No Dysuria, No Hematuria Musculoskeletal: No Joint Pain, No Muscular Weakness Neurological: No Impaired Coord/balance, No Numbness/Tingling Physical Exam General: Alert, Cooperative, No acute distress HEENT: Atraumatic, PERRLA Lungs: Clear to auscultation, Normal air movement Heart: Regular rate Abdomen: Soft, Other (mild tenderness periumbilical ) Extremities: No clubbing, No cyanosis Skin: No rashes, No breakdown Neuro: Normal speech, Sensation intact Psych/Mental Status: Mental status NL, Mood NL MUSCULOSKELETAL: No deformity, No swelling Vitals VITALS Vital Signs Date Time Temp Pulse Resp B/P (MAP) Pulse Ox O2 Delivery O2 Flow Rate FiO2 12/30/20 11:34 97.9 69 18 110/76 (87) 97 Room Air 97.9 Labs Labs Laboratory Tests Test 12/29/20 16:25 12/29/20 18:10 12/30/20 10:10 White Blood Count 12.4 x10^3/uL (4.0-11.0) Red Blood Count 5.43 x10^6/uL (4.30-5.70) Hemoglobin 16.7 g/dL (13.0-17.5) Hematocrit 48.9 % (39.0-53.0) Mean Corpuscular Volume 90 fL (79-100) Mean Corpuscular Hemoglobin 31 pg (25-35) Mean Corpuscular Hemoglobin Concent 34 g/dL (31-37) Red Cell Distribution Width 13.7 % (11.5-14.5) Platelet Count 216 x10^3/uL (140-400) Neutrophils (%) (Auto) 76 % (31-73) Lymphocytes (%) (Auto) 18 % (24-48) Monocytes (%) (Auto) 5 % (0-9) Eosinophils (%) (Auto) 0 % (0-3) Basophils (%) (Auto) 1 % (0-3) Neutrophils # (Auto) 9.5 x10^3/uL (1.8-7.7) Lymphocytes # (Auto) 2.2 x10^3/uL (1.0-4.8) Monocytes # (Auto) 0.6 x10^3/uL (0.0-1.1) Eosinophils # (Auto) 0.0 x10^3/uL (0.0-0.7) Basophils # (Auto) 0.1 x10^3/uL (0.0-0.2) Sodium Level 140 mmol/L (136-145) 140 mmol/L (136-145) Potassium Level 5.0 mmol/L (3.5-5.1) 3.9 mmol/L (3.5-5.1) Chloride Level 103 mmol/L (98-107) 106 mmol/L (98-107) Carbon Dioxide Level 27 mmol/L (21-32) 25 mmol/L (21-32) Anion Gap 10 (6-14) 9 (6-14) Blood Urea Nitrogen 16 mg/dL (8-26) 12 mg/dL (8-26) Creatinine 1.1 mg/dL (0.7-1.3) 1.0 mg/dL (0.7-1.3) Estimated GFR (Cockcroft-Gault) 74.5 83.2 BUN/Creatinine Ratio 15 (6-20) Glucose Level 79 mg/dL (70-99) 117 mg/dL (70-99) Calcium Level 9.4 mg/dL (8.5-10.1) 8.2 mg/dL (8.5-10.1) Total Bilirubin 0.6 mg/dL (0.2-1.0) Aspartate Amino Transf (AST/SGOT) 21 U/L (15-37) Alanine Aminotransferase (ALT/SGPT) 24 U/L (16-63) Alkaline Phosphatase 94 U/L (46-116) Creatine Kinase 175 U/L (39-308) Total Protein 8.0 g/dL (6.4-8.2) Albumin 4.6 g/dL (3.4-5.0) Albumin/Globulin Ratio 1.4 (1.0-1.7) Prothrombin Time 13.1 SEC (11.7-14.0) Prothromb Time International Ratio 1.0 (0.8-1.1) Activated Partial Thromboplast Time 21 SEC (24-38) Phosphorus Level 3.0 mg/dL (2.6-4.7) Magnesium Level 1.8 mg/dL (1.8-2.4) Thyroid Stimulating Hormone (TSH) 1.711 uIU/mL (0.358-3.74) Laboratory Tests Test 12/29/20 16:25 12/29/20 18:10 12/30/20 10:10 White Blood Count 12.4 x10^3/uL (4.0-11.0) Red Blood Count 5.43 x10^6/uL (4.30-5.70) Hemoglobin 16.7 g/dL (13.0-17.5) Hematocrit 48.9 % (39.0-53.0) Mean Corpuscular Volume 90 fL (79-100) Mean Corpuscular Hemoglobin 31 pg (25-35) Mean Corpuscular Hemoglobin Concent 34 g/dL (31-37) Red Cell Distribution Width 13.7 % (11.5-14.5) Platelet Count 216 x10^3/uL (140-400) Neutrophils (%) (Auto) 76 % (31-73) Lymphocytes (%) (Auto) 18 % (24-48) Monocytes (%) (Auto) 5 % (0-9) Eosinophils (%) (Auto) 0 % (0-3) Basophils (%) (Auto) 1 % (0-3) Neutrophils # (Auto) 9.5 x10^3/uL (1.8-7.7) Lymphocytes # (Auto) 2.2 x10^3/uL (1.0-4.8) Monocytes # (Auto) 0.6 x10^3/uL (0.0-1.1) Eosinophils # (Auto) 0.0 x10^3/uL (0.0-0.7) Basophils # (Auto) 0.1 x10^3/uL (0.0-0.2) Sodium Level 140 mmol/L (136-145) 140 mmol/L (136-145) Potassium Level 5.0 mmol/L (3.5-5.1) 3.9 mmol/L (3.5-5.1) Chloride Level 103 mmol/L (98-107) 106 mmol/L (98-107) Carbon Dioxide Level 27 mmol/L (21-32) 25 mmol/L (21-32) Anion Gap 10 (6-14) 9 (6-14) Blood Urea Nitrogen 16 mg/dL (8-26) 12 mg/dL (8-26) Creatinine 1.1 mg/dL (0.7-1.3) 1.0 mg/dL (0.7-1.3) Estimated GFR (Cockcroft-Gault) 74.5 83.2 BUN/Creatinine Ratio 15 (6-20) Glucose Level 79 mg/dL (70-99) 117 mg/dL (70-99) Calcium Level 9.4 mg/dL (8.5-10.1) 8.2 mg/dL (8.5-10.1) Total Bilirubin 0.6 mg/dL (0.2-1.0) Aspartate Amino Transf (AST/SGOT) 21 U/L (15-37) Alanine Aminotransferase (ALT/SGPT) 24 U/L (16-63) Alkaline Phosphatase 94 U/L (46-116) Creatine Kinase 175 U/L (39-308) Total Protein 8.0 g/dL (6.4-8.2) Albumin 4.6 g/dL (3.4-5.0) Albumin/Globulin Ratio 1.4 (1.0-1.7) Prothrombin Time 13.1 SEC (11.7-14.0) Prothromb Time International Ratio 1.0 (0.8-1.1) Activated Partial Thromboplast Time 21 SEC (24-38) Phosphorus Level 3.0 mg/dL (2.6-4.7) Magnesium Level 1.8 mg/dL (1.8-2.4) Thyroid Stimulating Hormone (TSH) 1.711 uIU/mL (0.358-3.74) Assessment/Plan Assessment/Plan head injury concussion seizure hx no gen surg needs, as per neuology, IPC EDILMA SPENCER MD 12/30/20 1538: CONSULT Assessment/Plan Assessment/Plan Pt sen and examined. Agree with Ms. Ibanez's note Pt noted some nausea earlier, but not resolved abd soft does not comment on shoulder pain cont per neurology. Thanks for consult! LEIDY IBANEZ APRN Dec 30, 2020 13:01 EDILMA SPENCER MD Dec 30, 2020 15:38
[2020-12-30 15:45] VITALS: BP 112/68
--- NOTE | 2020-12-30 17:07 | RAD ---
EXAM: Brain MRI without contrast. HISTORY: Seizures. Head injury. TECHNIQUE: Multiplanar, multisequence magnetic resonance imaging of the brain was performed without c ontrast. COMPARISON: CT dated 12/29/2016. FINDINGS: There is no restricted diffusion to suggest acute or subacute infarction. There is no susce ptibility effect to suggest hemorrhage. There is no mass effect or midline shift. There is no hydroce phalus. There is no suspicious white matter lesion. The orbits are unremarkable. There are tiny maxil teena sinus mucous tension cyst. There is minimal fluid within the right mastoid air cells. There are normal flow voids within the cerebral vessels. The hippocampi demonstrate symmetric size and signal. There is no heterotopia or malformation of cortical development. IMPRESSION: No acute intercranial finding or epileptogenic lesion. Electronically signed by: Dali Ricks MD (12/30/2020 5:05 PM) [id number]
[2020-12-30 19:00] VITALS: BP 107/65
[2020-12-30 23:00] VITALS: BP 104/62
[2020-12-31] MEDS: HYDROcodone/APAP 5/325MG 1 TAB TABLET PO PRN ×2 (02:58→09:03)
[2020-12-31 03:00] VITALS: BP 104/66
[2020-12-31] MEDS ORDERED: LEVE500T56 PO (07:27)
--- NOTE | 2020-12-31 07:28 | SNU/HH DC ---
DISCHARGE ORDERS DISCHARGE INFORMATION: DISCHARGE DATE: Dec 31, 2020 FINAL DIAGNOSIS Problems Medical Problems: (1) Head injury Status: Acute (2) Seizure Status: Acute CONDITION ON DISCHARGE: Stable CODE STATUS: Code Status: Full POST DISCHARGE ORDERS: ACTIVITY ORDERS: Resume previous activity WEIGHT BEARING STATUS: Full weight bearing DIET AFTER DISCHARGE: Cardiac CHECKS AFTER DISCHARGE: CHECKS AFTER DISCHARGE: Check blood press - daily, Check your Temp as needed FOLLOW-UP: PHYSICIAN FOLLOW-UP: PCP within 2 weeks of discharge ADDITIONAL FOLLOW-UP: Neurology as needed LAB ORDERS FOR FOLLOW-UP: CBC, CMP DISCHARGE MEDICATIONS: Home Meds Reported Medications Levetiracetam (KEPPRA) 750 Mg Tablet, 750 MG PO BID for seizure, TAB 12/29/20 KEVIN BARBA MD Dec 31, 2020 07:27
[2020-12-31 07:51] VITALS: BP 104/57
[2020-12-31] MEDS: levETIRAcetam 500 MG TABLET PO SCH (09:03)
--- NOTE | 2020-12-31 10:33 | PDOC ---
PROGRESS NOTES Date of Service DATE: 12/31/20 TIME: 10:29 Assessment Problems Medical Problems: (1) Head injury Status: Acute (2) Seizure Status: Acute Epilepsy, brain MRI negative Concussion I did not see any tics Abnormal right proximal humerus on the stone rubber view of the cervical spine CT, he has some shoulder pain Plan Increased levetiracetam dose to 1000 mg twice a day Turns out he has never had an EEG, so I will check 1 Okay to discharge after EEG Check right shoulder x-ray Subjective Feels a little better Objective Vital Signs Date Time Temp Pulse Resp B/P (MAP) Pulse Ox O2 Delivery O2 Flow Rate FiO2 12/31/20 09:03 Room Air 12/31/20 07:51 97.9 59 18 104/57 (73) 99 97.9 Intake and Output 12/31/20 07:00 Intake Total 1500 ml Output Total 500 ml Balance 1000 ml Intake Oral 1500 ml Output Urine Total 500 ml # Voids 2 Review of Relevant I have reviewed the following items deb (where applicable) has been applied. Labs Laboratory Tests Test 12/29/20 16:25 12/29/20 18:10 12/30/20 10:10 White Blood Count 12.4 x10^3/uL (4.0-11.0) Red Blood Count 5.43 x10^6/uL (4.30-5.70) Hemoglobin 16.7 g/dL (13.0-17.5) Hematocrit 48.9 % (39.0-53.0) Mean Corpuscular Volume 90 fL (79-100) Mean Corpuscular Hemoglobin 31 pg (25-35) Mean Corpuscular Hemoglobin Concent 34 g/dL (31-37) Red Cell Distribution Width 13.7 % (11.5-14.5) Platelet Count 216 x10^3/uL (140-400) Neutrophils (%) (Auto) 76 % (31-73) Lymphocytes (%) (Auto) 18 % (24-48) Monocytes (%) (Auto) 5 % (0-9) Eosinophils (%) (Auto) 0 % (0-3) Basophils (%) (Auto) 1 % (0-3) Neutrophils # (Auto) 9.5 x10^3/uL (1.8-7.7) Lymphocytes # (Auto) 2.2 x10^3/uL (1.0-4.8) Monocytes # (Auto) 0.6 x10^3/uL (0.0-1.1) Eosinophils # (Auto) 0.0 x10^3/uL (0.0-0.7) Basophils # (Auto) 0.1 x10^3/uL (0.0-0.2) Sodium Level 140 mmol/L (136-145) 140 mmol/L (136-145) Potassium Level 5.0 mmol/L (3.5-5.1) 3.9 mmol/L (3.5-5.1) Chloride Level 103 mmol/L (98-107) 106 mmol/L (98-107) Carbon Dioxide Level 27 mmol/L (21-32) 25 mmol/L (21-32) Anion Gap 10 (6-14) 9 (6-14) Blood Urea Nitrogen 16 mg/dL (8-26) 12 mg/dL (8-26) Creatinine 1.1 mg/dL (0.7-1.3) 1.0 mg/dL (0.7-1.3) Estimated GFR (Cockcroft-Gault) 74.5 83.2 BUN/Creatinine Ratio 15 (6-20) Glucose Level 79 mg/dL (70-99) 117 mg/dL (70-99) Calcium Level 9.4 mg/dL (8.5-10.1) 8.2 mg/dL (8.5-10.1) Total Bilirubin 0.6 mg/dL (0.2-1.0) Aspartate Amino Transf (AST/SGOT) 21 U/L (15-37) Alanine Aminotransferase (ALT/SGPT) 24 U/L (16-63) Alkaline Phosphatase 94 U/L (46-116) Creatine Kinase 175 U/L (39-308) Total Protein 8.0 g/dL (6.4-8.2) Albumin 4.6 g/dL (3.4-5.0) Albumin/Globulin Ratio 1.4 (1.0-1.7) Prothrombin Time 13.1 SEC (11.7-14.0) Prothromb Time International Ratio 1.0 (0.8-1.1) Activated Partial Thromboplast Time 21 SEC (24-38) Phosphorus Level 3.0 mg/dL (2.6-4.7) Magnesium Level 1.8 mg/dL (1.8-2.4) Thyroid Stimulating Hormone (TSH) 1.711 uIU/mL (0.358-3.74) Medications Current Medications Lorazepam (Ativan Inj) 2 mg 1X ONCE IVP Last administered on 12/29/20at 16:28; Start 12/29/20 at 16:30; Stop 12/29/20 at 16:56; Status DC Ondansetron HCl (Zofran) 4 mg 1X ONCE IVP Last administered on 12/29/20at 16:57; Start 12/29/20 at 16:30; Stop 12/29/20 at 16:56; Status DC Sodium Chloride 1,000 ml @ 1,000 mls/hr 1X ONCE IV Last administered on 12/29/20at 16:57; Start 12/29/20 at 16:30; Stop 12/29/20 at 17:29; Status DC Acetaminophen (Tylenol) 1,000 mg 1X ONCE PO Last administered on 12/29/20at 19:24; Start 12/29/20 at 18:15; Stop 12/29/20 at 18:16; Status DC Lorazepam (Ativan Inj) 2 mg PRN Q10MIN PRN IVP TREMORS; Start 12/29/20 at 18:30 Acetaminophen (Tylenol) 650 mg PRN Q4HRS PRN PO FEVER > 100.3'F; Start 12/29/20 at 18:30; Stop 12/29/20 at 18:50; Status DC Morphine Sulfate (Morphine Sulfate) 4 mg PRN Q4HRS PRN IV SEVERE PAIN 7-10; Start 12/29/20 at 18:45 Ondansetron HCl (Zofran) 4 mg PRN Q6HRS PRN IVP NAUSEA/VOMITING Last administered on 12/30/20at 16:23; Start 12/29/20 at 18:45 Al Hydroxide/Mg Hydroxide (Mylanta Plus Xs) 30 ml PRN Q3HRS PRN PO HEARTBURN / GAS; Start 12/29/20 at 18:45 Calcium Carbonate/ Glycine (Tums) 500 mg PRN Q3HRS PRN PO UPSET STOMACH; Start 12/29/20 at 18:45 Zolpidem Tartrate (Ambien) 5 mg PRN QHS PRN PO INSOMNIA, MAY REPEAT IN 1HR; Start 12/29/20 at 18:45 Acetaminophen/ Hydrocodone Bitart (Lortab 5/325) 1 tab PRN Q4HRS PRN PO MODERATE PAIN Last administered on 12/31/20at 09:03; Start 12/29/20 at 18:45 Acetaminophen/ Hydrocodone Bitart (Lortab 5/325) 2 tab PRN Q4HRS PRN PO SEVERE PAIN; Start 12/29/20 at 18:45 Acetaminophen (Tylenol) 650 mg PRN Q6HRS PRN PO Headaches, Temp > 101.5F; Start 12/29/20 at 18:45 Ibuprofen (Motrin) 400 mg PRN Q6HRS PRN PO MILD PAIN 1-3; Start 12/29/20 at 18:45 Magnesium Hydroxide (Milk Of Magnesia) 2,400 mg PRN Q12HR PRN PO CONSTIPATION; Start 12/29/20 at 18:45 Levetiracetam (Keppra) 750 mg BID PO Last administered on 12/29/20at 22:01; Start 12/29/20 at 21:00; Stop 12/30/20 at 08:45; Status DC Levetiracetam (Keppra) 1,000 mg BID PO Last administered on 12/31/20at 09:03; Start 12/30/20 at 09:00 Active Scripts Active Reported Keppra (Levetiracetam) 750 Mg Tablet 750 Mg PO BID Vitals/I & O Vital Sign - Last 24 Hours 12/30/20 12/30/20 12/30/20 12/30/20 11:34 15:45 16:20 17:35 Temp 97.9 98.5 97.9 98.5 Pulse 69 81 Resp 18 18 B/P (MAP) 110/76 (87) 112/68 (83) Pulse Ox 97 98 98 O2 Delivery Room Air Room Air Room Air Room Air 12/30/20 12/30/20 12/30/20 12/31/20 19:00 20:00 23:00 02:58 Temp 98.4 98.0 98.4 98.0 Pulse 62 74 Resp 20 20 19 B/P (MAP) 107/65 (79) 104/62 (76) Pulse Ox 96 98 O2 Delivery Room Air Room Air Room Air Room Air 12/31/20 12/31/20 12/31/20 12/31/20 03:00 03:28 07:51 08:15 Temp 98.2 97.9 98.2 97.9 Pulse 68 59 Resp 20 18 18 B/P (MAP) 104/66 (79) 104/57 (73) Pulse Ox 96 99 O2 Delivery Room Air Room Air Room Air Room Air 12/31/20 09:03 O2 Delivery Room Air Intake and Output 12/30/20 12/30/20 12/31/20 15:00 23:00 07:00 Intake Total 500 ml 500 ml 500 ml Output Total 500 ml Balance 500 ml 500 ml 0 ml Images Brain MRI without contrast. HISTORY: Seizures. Head injury. TECHNIQUE: Multiplanar, multisequence magnetic resonance imaging of the brain was performed without contrast. COMPARISON: CT dated 12/29/2016. FINDINGS: There is no restricted diffusion to suggest acute or subacute infarction. There is no susceptibility effect to suggest hemorrhage. There is no mass effect or midline shift. There is no hydrocephalus. There is no suspicious white matter lesion. The orbits are unremarkable. There are tiny maxillary sinus mucous tension cyst. There is minimal fluid within the right mastoid air cells. There are normal flow voids within the cerebral vessels. The hippocampi demons trate symmetric size and signal. There is no heterotopia or malformation of cortical development. IMPRESSION: No acute intercranial finding or epileptogenic lesion. Justicifation of Admission Dx: Justifications for Admission: Justification of Admission Dx: N/A DHIRAJ LYMAN MD Dec 31, 2020 10:33
[2020-12-31 11:00] VITALS: BP 112/74
--- NOTE | 2020-12-31 11:01 | EEG ---
DATE OF SERVICE: 12/31/2020 ELECTROENCEPHALOGRAM EEG NUMBER: [id number]. OBJECTIVE: The patient is a 40-year-old male with a 15-year history of seizures. DESCRIPTION: This is a digital study. Electrodes were placed according to the international 10-20 system. Bipolar and referential montages are available. Activation procedures typically include hyperventilation and intermittent photic stimulation. INTERPRETATION: The waking background consists of 9-10 Hz, 50-100 microvolt activity, symmetrically distributed over the parietooccipital regions and reacted to eye opening. There are occasional sharply contoured generalized transient activities. Stage 1 sleep was achieved with normal electroencephalogram patterns. Hyperventilation and intermittent photic stimulation are noncontributory. IMPRESSION: This electroencephalogram with the patient awake and asleep is abnormal because of a generalized epileptic disturbance of cerebral activity. Sharply contoured waves can also be a normal variation, however. Thank you for letting us help with the patient's care. BRUCE DR: Sruthi TID: [id number]
[2020-12-31 15:10] VITALS: BP 124/65
--- NOTE | 2020-12-31 16:29 | RAD ---
EXAM: RIGHT SHOULDER 3 VIEWS. HISTORY: Right shoulder pain. COMPARISON: None. FINDINGS: Deformity along the anteroinferior aspect of the right humeral head and along the anteroinf erior glenoid may reflect a chronic osseous Bankart lesion along with bulky humeral osteophytosis or chronic fracture deformity. A loose body in the axillary recess measures 11 x 6 mm. No acute fracture s are seen. Glenohumeral alignment is maintained. Acromioclavicular joint spaces and alignment are ma intained. IMPRESSION: 1. 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 Electronically signed by: Lana Dash MD (12/31/2020 4:26 PM) [id number]
--- NOTE | 2020-12-31 18:11 | NUR ---
Discharge Note: SABINO REDMAN Discharge instructions and discharge home medications reviewed with Patient and RN at [facility] and a copy given. All questions have been answered and understanding verbalized. The following instructions and handouts were given: discharge instructions, new prescription, education and follow up recommendations. Discontinued lines and drains: Peripheral IV discontinued intact. Patient discharged to [facility] with [facility]-[employer] Guards via Wheelchair
--- NOTE | 2021-01-06 14:38 | PDOC3 ---
[facility]-Discharge Summary Date of Admission: Date of Admission: Dec 30, 2020 Date of Discharge: Date of Discharge: Dec 31, 2020 Discharge Diagnosis: Discharge Diagnosis: Acute onset seizure History of epilepsy Consults: Consults: Neuro recs: Epilepsy, brain MRI negative Concussion I did not see any tics Abnormal right proximal humerus on the senior mechanical project engineer view of the cervical spine CT, he has some shoulder pain Plan Increased levetiracetam dose to 1000 mg twice a day Turns out he has never had an EEG, so I will check 1 Okay to discharge after EEG Check right shoulder x-ray Hospital Course: Hospital Course: 40 year old male inmate who presents with here from [facility] when he was playing basketball and fell back and hit his head hard against a cement floor. It is unknown if he lost consciousness at that time. Guards stated that he got back up and said that he was fine and then began to vomit. This happened approximately 3:00 this afternoon. Patient's history is seizures of which she takes Keppra. Patient states he has a headache that he rates an 8 out of 10. He states " I do not feel good". Patient is repeating himself. Patient will be speaking and then start snoring and then awakens again. Chart review: ED course - Patient is trying to follow commands but is disoriented. Patient began having a seizure was witnessed by nursing staff that lasted about 20 seconds and it was full body. Patient was given 2 mg Ativan and seizure stopped. Patient did begin to vomit in the ED. Patient was promptly set up. Patient tries to follow my fingers with his eyes only. He does so briefly. There is some nystagmus. Patient states that he is not dizzy but just does not feel well. He states his head is hurting badly. He does have a red deb to the back of his scalp and slight tenderness with palpation. He does hav e right and left sides of cervical spine tenderness. He is moving his neck in all of his limbs appropriately. CT head and neck without any acute findings. Chest x-ray shows no acute findings. Patient has not had another seizure since he has been in the ED. He is given Tylenol for his headache. By day of discharge, pt was clinically stable and ready for discharge. Rest of hospital course was uneventful Disposition: Disposition/Orders: D/C to Home Activity: Activity: Resume previous activity Diet: Diet: Cardiac Medications: Home Meds Active Scripts Levetiracetam (KEPPRA) 500 Mg Tablet, 1000 MG PO BID for seizure prevention for 30 Days, #120 TAB Prov:KEVIN BARBA MD 12/31/20 Discontinued Reported Medications Levetiracetam (KEPPRA) 750 Mg Tablet, 750 MG PO BID for seizure, TAB 12/29/20 Scheduled Levetiracetam (Keppra), 1,000 MG PO BID Discontinued Medications Levetiracetam (Keppra), 750 MG PO BID, (Reported) Total Time: Total Time: Total time spent was 32 minutes in preparing scripts, discharge planning with SW and RN, and preparing this discharge summary. Patient seen and examined on day of discharge. Justicifation of Admission Dx: Justifications for Admission: Justification of Admission Dx: N/A KEVIN BARBA MD Jan 06, 2021 14:38
== END 2020-12-31 18:11 ==
LOC: ER 16:00 → EEVIPCON 16:00 → 6 SOUTH 19:46
PROVIDERS: ADMIT Family Medicine; ATTEND Family Medicine
DX: R56.9 Unspecified convulsions (principal); S06.0X9A Concussion with loss of consciousness of unspecified duration, initial encounter; T67.01XA Heatstroke and sunstroke, initial encounter; H55.00 Unspecified nystagmus; F41.9 Anxiety disorder, unspecified; F32.9 Major depressive disorder, single episode, unspecified; Z79.899 Other long term (current) drug therapy; W18.30XA Fall on same level, unspecified, initial encounter; X30.XXXA Exposure to excessive natural heat, initial encounter; Y93.67 Activity, basketball; Y92.89 Other specified places as the place of occurrence of the external cause; Y99.8 Other external cause status
CPT/HCPCS: 36415; 70450; 70551; 71045; 72125; 73030; 80048; 80053; 80177; 82550; 83735; 84100; 84443; 85025; 85610; 85730; 93005; 95816; 96361; 96374; 96375; 96376; 99285; G0378; J2060; J2405; J7030; G0379